=== PATIENT | female | born 1950 | race American Indian/Alaskan Native ===

== ENCOUNTER 2018-08-15 12:34 | Inpatient (IN) | payer MEDICARE ==
--- NOTE | 2018-08-15 13:01 | Cat Scan Report ---
HEAD CT WITHOUT CONTRAST INDICATION: Neurologic deficits <6 hours or symptoms present upon awakening. 98N. COMPARISON: None similar at this institution. FINDINGS: Noncontrast head CT demonstrates symmetric ventricles and sulci without acute or recent infarct, hemorrhage, mass effect or midline shift. No abnormal extra-axial fluid collections. Posterior fossa structures and basilar cisterns within normal limits. Slight left maxillary sinus mucosal thickening may be partially imaged. Aplastic/hypoplastic frontal sinuses bilaterally. Clear remainder imaged paranasal sinuses and mastoid air cells. Few radiopaque dental material. Symmetric eye globes. Intact calvarium. Normal scalp soft tissues. CONCLUSION: No acute intracranial CT abnormality with few other findings, as above. MRI is more sensitive for detection of acute infarct and may be useful for further evaluation in the setting of a focal neurologic deficit. I phoned the above results to Dr. Gonzalez in the ER, 12:50 PM, 08/15/2018. Thank you for the opportunity to participate in this patient's care.
[2018-08-15] MEDS ORDERED: NACL 0.9% 500 ML 500 ML IV ONE (13:05)
--- NOTE | 2018-08-15 13:06 | Emergency Department Report ---
ED Neuro Deficit HPI - General Chief Complaint: Weakness Stated Complaint: POSS CVA Time Seen by Provider: 08/15/18 12:54 Source: patient, family, EMS (verbal report received from EMS.ems notes not available at time of chart dictation), RN notes reviewed Mode of arrival: Stretcher Limitations: Physical Limitation - History of Present Illness Initial Comments: This is a 67-year-old female visiting from [facility]. She currently has a right-sided port, and is reportedly receiving chemotherapy for lymphoma. She recently traveled to [facility]. She is brought to the hospital by emergency medical services for reported code stroke. Patient's last known well time was last night. The patient reported that she woke up this morning, and felt dizzy, weak and lightheaded. She probably had an episode of syncope prior to arrival. At some point in time this morning, developed speech disturbance. Upon arrival to the emergency room, the patient is noted to have an intermittent speech disturbance, but no focal extremity weakness. Accu-Chek was within normal limits. Patient denied physical pain. Since patient reportedly woke up with lightheadedness, dizziness, possible unsteady gait, last known well time is last night, the patient is therefore not a TPA candidate. Noncontrast CT scan of the brain was negative for acute diseas e. During my initial evaluation the patient, she was noted to be articulating her words strangely, almost like in a childlike fashion. This resolves upon nursing evaluation. The patient was also evaluated by telephone neurology stroke specialist, Dr. Linda Robison, who agreed that patient did not meet criteria for qualify for TPA. We both agree to obtain emergent CT angiogram of the head and neck to exclude large vessel that require endovascular intervention. Tachycardia resolved, not hypoxic at this time. No lower extremity pain or swelling. -: unknown Location: speech, altered, other Presenting Symptoms: Present: Unable to Speak Clearly. Absent: Weak/Paralyzed One Side, Sudden, Severe Headache, Blurred/Loss of Vision, Facial Droop/Numbness, Altered Mental Status History of same: No Place: home Severity: moderate Improves With: other Worsens With: other On Anticoagulants: No - Related Data Home Medications: Home Medications Medication Instructions Recorded Confirmed Last Taken Fexofenadine HCl [Candida Allergy] 180 mg PO QAM PRN 08/15/18 08/15/18 Unknown Oxycodone HCl/Acetaminophen 1 each PO BID PRN 08/15/18 08/15/18 Unknown [Percocet 7.5/325 mg] Potassium Chloride [Klor-Con M20] 20 meq PO QDAY 08/15/18 08/15/18 Unknown Valsartan/Hydrochlorothiazide 1 each PO QDAY 08/15/18 08/15/18 Unknown [Valsartan-Hctz 320-25 mg Tab] hydrOXYzine HCl [Hydroxyzine HCl] 10 mg PO QHS PRN 08/15/18 08/15/18 Unknown Allergies/Adverse Reactions: Allergies Allergy/AdvReac Type Severity Reaction Status Date / Time Unable to Assess Allergy Unverified 08/15/18 12:36 ED Review of Systems ROS: Stated complaint: POSS CVA Other details as noted in HPI Constitutional: malaise Eyes: denies: vision change ENT: denies: epistaxis Respiratory: denies: cough Cardiovascular: syncope. denies: chest pain Gastrointestinal: denies: abdominal pain, hematemesis, melena, hematochezia Genitourinary: denies: dysuria Musculoskeletal: denies: arthralgia, myalgia Skin: denies: lesions Neurological: weakness Psychiatric: anxiety ED Past Medical Hx - Medications Home Medications: Home Medications Medication Instructions Recorded Confirmed Last Taken Type Fexofenadine HCl [Candida Allergy] 180 mg PO QAM PRN 08/15/18 08/15/18 Unknown History Oxycodone HCl/Acetaminophen 1 each PO BID PRN 08/15/18 08/15/18 Unknown History [Percocet 7.5/325 mg] Potassium Chloride [Klor-Con M20] 20 meq PO QDAY 08/15/18 08/15/18 Unknown History Valsartan/Hydrochlorothiazide 1 each PO QDAY 08/15/18 08/15/18 Unknown History [Valsartan-Hctz 320-25 mg Tab] hydrOXYzine HCl [Hydroxyzine HCl] 10 mg PO QHS PRN 08/15/18 08/15/18 Unknown History ED Neuro Physical Exam - General General appearance: alert, anxious, in distress, obese Suspected Stroke: No - Head Head exam: Present: atraumatic, normocephalic - Eye Eye exam: Present: normal appearance, EOMI. Absent: nystagmus - ENT ENT exam: Present: normal exam, normal orophraynx, mucous membranes moist, normal external ear exam - Neck Neck exam: Present: normal inspection, full ROM. Absent: tenderness, meningismus - Respiratory Respiratory exam: Present: normal lung sounds bilaterally. Absent: respiratory distress - Cardiovascular Cardiovascular Exam: Present: normal rhythm, tachycardia, normal heart sounds. Absent: systolic murmur, diastolic murmur, rubs, gallop - GI/Abdominal GI/Abdominal exam: Present: soft. Absent: distended, tenderness, guarding, rebound, rigid, pulsatile mass - Extremities Exam Extremities exam: Present: normal inspection, full ROM, other (2+ pulses noted in the bilateral upper, lower extremities. Compartments soft. No long bony tenderness. The pelvis is stable.). Absent: joint swelling, calf tenderness - Back Exam Back exam: Present: normal inspection, full ROM. Absent: tenderness, CVA tenderness (R), paraspinal tenderness, vertebral tenderness - Neurological Exam Neurological exam: Present: alert, other (Extraocular movements intact. Tongue midline. No facial droop. Facial sensation intact to light touch in the V1, V2, V3 distribution bilaterally. 5 and 5 strength in 4 extremities.. Sensation is intact to light touch in 4 extremities.). Absent: motor sensory deficit - NIHSS Assessment Interval: Baseline 1a. Level of Consciousness: alert/keenly responsive 1b. LOC Questions: answers both correctly 1c. LOC Commands: performs tasks correctly 2. Best Gaze: normal 3. Visual: no visual loss 4. Facial Palsy: normal symmetrical movement 5b. Motor Arm Right: no drift 5a. Motor Arm Left: no drift 6a. Motor Leg Left: no drift 6b. Motor Leg Right: no drift 7. Limb Ataxia: absent 8. Sensory: normal 9. Best Language: no aphasia 10. Dysarthria: mild/moderate dysarthria 11. Extinction/Inattention: no abnormality Total Score: 1 Stroke Severity: Minor Stroke - Psychiatric Psychiatric exam: Present: anxious - Skin Skin exam: Present: warm, dry, intact, normal color. Absent: rash ED Course Vital Signs 08/15/18 08/15/18 08/15/18 12:40 12:49 13:00 Temperature 98.5 F Pulse Rate 102 H 102 H 101 H Respiratory 18 13 14 Rate Blood Pressure 149/77 149/77 O2 Sat by Pulse 99 100 Oximetry 08/15/18 08/15/18 08/15/18 13:15 13:30 13:45 Temperature Pulse Rate 104 H 99 H 98 H Respiratory 13 17 13 Rate Blood Pressure 160/85 147/69 157/75 O2 Sat by Pulse 97 99 99 Oximetry 08/15/18 08/15/18 08/15/18 14:00 14:15 14:47 Temperature Pulse Rate 95 H 103 H 100 H Respiratory 11 L 16 17 Rate Blood Pressure 126/54 126/54 O2 Sat by Pulse 100 100 100 Oximetry 08/15/18 08/15/18 08/15/18 15:01 15:15 15:31 Temperature Pulse Rate 93 H 92 H 99 H Respiratory 10 L 14 13 Rate Blood Pressure 126/54 154/64 154/64 O2 Sat by Pulse 100 98 99 Oximetry 08/15/18 08/15/18 15:45 16:00 Temperature Pulse Rate 92 H 95 H Respiratory 11 L 18 Rate Blood Pressure 154/64 142/70 O2 Sat by Pulse 100 100 Oximetry - Reevaluation(s) Reevaluation #1: 08/15/18 18:27 Angiogram of the head and neck was negative for acute disease. Aspirin ordered. Hospital physician, Dr. De La Cruz has accepted the patient to the medical service. Please note that there was a significant delay in the patient's disposition secondary to prolonged time of interpretation for CT scan. - Lab Data Result diagrams: 08/15/18 12:55 08/15/18 12:55 Lab Results 08/15/18 08/15/18 08/15/18 Range/Units 12:55 12:55 12:59 WBC 3.9 L (4.5-11.0) K/mm3 RBC 4.47 (3.65-5.03) M/mm3 Hgb 12.7 (10.1-14.3) gm/dl Hct 37.9 (30.3-42.9) % MCV 85 (79-97) fl MCH 28 (28-32) pg MCHC 34 (30-34) % RDW 15.4 H (13.2-15.2) % Plt Count 103 L (140-440) K/mm3 [place] % (Auto) Supervisor Metalizing Add Manual Diff Complete Total Counted 100 Seg Neuts % (Manual) 58.0 (40.0-70.0) % Band Neutrophils % 0 % Lymphocytes % (Manual) 17.0 (13.4-35.0) % Reactive Lymphs % (Man) 0 % Monocytes % (Manual) 15.0 H (0.0-7.3) % Eosinophils % (Manual) 9.0 H (0.0-4.3) % Basophils % (Manual) 1.0 (0.0-1.8) % Metamyelocytes % 0 % Myelocytes % 0 % Promyelocytes % 0 % Blast Cells % 0 % Nucleated RBC % Not Reportable Seg Neutrophils # Man 2.3 (1.8-7.7) K/mm3 Band Neutrophils # 0.0 K/mm3 Lymphocytes # (Manual) 0.7 L (1.2-5.4) K/mm3 Abs React Lymphs (Man) 0.0 K/mm3 Monocytes # (Manual) 0.6 (0.0-0.8) K/mm3 Eosinophils # (Manual) 0.4 (0.0-0.4) K/mm3 Basophils # (Manual) 0.0 (0.0-0.1) K/mm3 Metamyelocytes # 0.0 K/mm3 Myelocytes # 0.0 K/mm3 Promyelocytes # 0.0 K/mm3 Blast Cells # 0.0 K/mm3 WBC Morphology Not Reportable Hypersegmented Neuts Not Reportable Hyposegmented Neuts Not Reportable Hypogranular Neuts Not Reportable Smudge Cells Not Reportable Toxic Granulation Not Reportable Toxic Vacuolation Not Reportable Dohle Bodies Not Reportable Pelger-Huet Anomaly Not Reportable Waldemar Rods Not Reportable Platelet Estimate Consistent w auto Clumped Platelets Not Reportable Plt Clumps, EDTA Not Reportable Large Platelets Not Reportable Giant Platelets Not Reportable Platelet Satelliting Not Reportable Plt Morphology Comment Not Reportable RBC Morphology Not Reportable Dimorphic RBCs Not Reportable Polychromasia Not Reportable Hypochromasia Not Reportable Poikilocytosis Not Reportable Anisocytosis Few Microcytosis Not Reportable Macrocytosis Not Reportable Spherocytes Not Reportable Pappenheimer Bodies Not Reportable Sickle Cells Not Reportable Target Cells Not Reportable Tear Drop Cells Not Reportable Ovalocytes Not Reportable Helmet Cells Not Reportable Abdi-[place] Bodies Not Reportable [place] Rings Not Reportable [place] Cells Not Reportable Bite Cells Not Reportable Crenated Cell Not Reportable Elliptocytes Not Reportable Acanthocytes (Spur) Not Reportable Rouleaux Not Reportable Hemoglobin C Crystals Not Reportable Schistocytes Not Reportable Malaria parasites Not Reportable Miguel Ángel Bodies Not Reportable Hem Pathologist Commnt No PT 14.5 (12.2-14.9) Sec. INR 1.06 (0.87-1.13) APTT 28.0 (24.2-36.6) Sec. Thrombin Time 16.9 (15.1-19.6) Sec. Sodium 142 (137-145) mmol/L Potassium 4.1 (3.6-5.0) mmol/L Chloride 103.3 (98-107) mmol/L Carbon Dioxide 26 (22-30) mmol/L Anion Gap 17 mmol/L BUN 14 (7-17) mg/dL Creatinine 0.8 (0.7-1.2) mg/dL Estimated GFR > 60 ml/min BUN/Creatinine Ratio 18 % Glucose 109 H (65-100) mg/dL Calcium 10.3 H (8.4-10.2) mg/dL Magnesium (1.7-2.3) mg/dL Total Creatine Kinase (30-135) units/L Troponin T 0.049 H (0.00-0.029) ng/mL Triglycerides 140 (2-149) mg/dL Cholesterol 189 (50-199) mg/dL LDL Cholesterol Direct 115 (50-130) mg/dL HDL Cholesterol 45 (40-59) mg/dL Cholesterol/HDL Ratio 4.20 % TSH (0.270-4.200) mlU/mL Urine Color (Yellow) Urine Turbidity (Clear) Urine pH (5.0-7.0) Ur Specific Farrell (1.003-1.030) Urine Protein (Negative) mg/dL Urine Glucose (UA) (Negative) mg/dL Urine Ketones (Negative) mg/dL Urine Blood (Negative) Urine Nitrite (Negative) Urine Bilirubin (Negative) Urine Urobilinogen (<2.0) mg/dL Ur Leukocyte Esterase (Negative) Urine WBC (Auto) (0.0-6.0) /HPF Urine RBC (Auto) (0.0-6.0) /HPF U Epithel Cells (Auto) (0-13.0) /HPF Urine Bacteria (Auto) (Negative) /HPF 08/15/18 08/15/1808/15/19 Range/Units 13:10 13:10 14:05 WBC (4.5-11.0) K/mm3 RBC (3.65-5.03) M/mm3 Hgb (10.1-14.3) gm/dl Hct (30.3-42.9) % MCV (79-97) fl MCH (28-32) pg MCHC (30-34) % RDW (13.2-15.2) % Plt Count (140-440) K/mm3 [place] % (Auto) Add Manual Diff Total Counted Seg Neuts % (Manual) (40.0-70.0) % Band Neutrophils % % Lymphocytes % (Manual) (13.4-35.0) % Reactive Lymphs % (Man) % Monocytes % (Manual) (0.0-7.3) % Eosinophils % (Manual) (0.0-4.3) % Basophils % (Manual) (0.0-1.8) % Metamyelocytes % % Myelocytes % % Promyelocytes % % Blast Cells % % Nucleated RBC % Seg Neutrophils # Man (1.8-7.7) K/mm3 Band Neutrophils # K/mm3 Lymphocytes # (Manual) (1.2-5.4) K/mm3 Abs React Lymphs (Man) K/mm3 Monocytes # (Manual) (0.0-0.8) K/mm3 Eosinophils # (Manual) (0.0-0.4) K/mm3 Basophils # (Manual) (0.0-0.1) K/mm3 Metamyelocytes # K/mm3 Myelocytes # K/mm3 Promyelocytes # K/mm3 Blast Cells # K/mm3 WBC Morphology Hypersegmented Neuts Hyposegmented Neuts Hypogranular Neuts Smudge Cells Toxic Granulation Toxic Vacuolation Dohle Bodies Pelger-Huet Anomaly Waldemar Rods Platelet Estimate Clumped Platelets Plt Clumps, EDTA Large Platelets Giant Platelets Platelet Satelliting Plt Morphology Comment RBC Morphology Dimorphic RBCs Polychromasia Hypochromasia Poikilocytosis Anisocytosis Microcytosis Macrocytosis Spherocytes Pappenheimer Bodies Sickle Cells Target Cells Tear Drop Cells Ovalocytes Helmet Cells Abdi-[place] Bodies [place] Rings [place] Cells Bite Cells Crenated Cell Elliptocytes Acanthocytes (Spur) Rouleaux Hemoglobin C Crystals Schistocytes Malaria parasites Miguel Ángel Bodies Hem Pathologist Commnt PT (12.2-14.9) Sec. INR (0.87-1.13) APTT (24.2-36.6) Sec. Thrombin Time (15.1-19.6) Sec. Sodium (137-145) mmol/L Potassium (3.6-5.0) mmol/L Chloride (98-107) mmol/L Carbon Dioxide (22-30) mmol/L Anion Gap mmol/L BUN (7-17) mg/dL Creatinine (0.7-1.2) mg/dL Estimated GFR ml/min BUN/Creatinine Ratio % Glucose (65-100) mg/dL Calcium (8.4-10.2) mg/dL Magnesium 1.70 (1.7-2.3) mg/dL Total Creatine Kinase 109 (30-135) units/L Troponin T (0.00-0.029) ng/mL Triglycerides (2-149) mg/dL Cholesterol (50-199) mg/dL LDL Cholesterol Direct (50-130) mg/dL HDL Cholesterol (40-59) mg/dL Cholesterol/HDL Ratio % TSH 1.230 (0.270-4.200) mlU/mL Urine Color Straw (Yellow) Urine Turbidity Clear (Clear) Urine pH 8.0 H (5.0-7.0) Ur Specific Farrell 1.005 (1.003-1.030) Urine Protein <15 mg/dl (Negative) mg/dL Urine Glucose (UA) Neg (Negative) mg/dL Urine Ketones Neg (Negative) mg/dL Urine Blood Neg (Negative) Urine Nitrite Neg (Negative) Urine Bilirubin Neg (Negative) Urine Urobilinogen < 2.0 (<2.0) mg/dL Ur Leukocyte Esterase Mod (Negative) Urine WBC (Auto) 9.0 H (0.0-6.0) /HPF Urine RBC (Auto) 1.0 (0.0-6.0) /HPF U Epithel Cells (Auto) 3.0 (0-13.0) /HPF Urine Bacteria (Auto) 1+ (Negative) /HPF - EKG Data -: EKG Interpreted by Oh EKG shows normal: sinus rhythm Rate: tachycardia When compared to previous EKG there are: previous EKG unavailable 08/15/18 14:25 Sinus tachycardia, 101 bpm, normal axis, QTC within normal limits, motion artif act, poor R-wave progression, abnormal EKG, not consistent with ST elevation myocardial infarction. - Radiology Data Radiology results: report reviewed, image reviewed X-ray the chest is negative for acute disease. Noncontrast CT scan of the brain is negative for acute disease. Angiogram of the head and neck: - Core Measures Measure Exclusions: not indicated - Thrombolytic Inclusion/Exclusion Thrombolytic Exclusion Criteria: Onset of Symptoms Unknown Thrombolytic Contraindications: Rapidily Improving s/s Critical care attestation.: If time is entered above; I have spent that time in minutes in the direct care of this critically ill patient, excluding procedure time. ED Disposition Clinical Impression: TIA (transient ischemic attack), Syncope Disposition: 09 OP ADMIT IP TO THIS HOSP Is pt being admited?: Yes Does the pt Need Aspirin: Yes Condition: Good Instructions: Syncope (ED) Referrals: CAIT WILLIS MD [Primary Care Provider] - 3-5 Days
[2018-08-15 13:08] LABS: Hematocrit 37.9 % (30.3-42.9); Hemoglobin 12.7 gm/dl (10.1-14.3); Mean Corpuscular HGB Conc 34 % (30-34); Mean Corpuscular Volume 85 fl (79-97); Platelet Count 103 K/mm3 (140-440); Red Blood Count 4.47 M/mm3 (3.65-5.03); Red Cell Distribution Width 15.4 % (13.2-15.2)
[2018-08-15 13:19] LABS: INR 1.06 (0.87-1.13)
[2018-08-15 13:20] LABS: Thrombin Time 16.9 Sec. (15.1-19.6)
[2018-08-15 13:29] LABS: BUN/Creatinine Ratio 18; Blood Urea Nitrogen 14 mg/dL (7-17); Calcium 10.3 mg/dL (8.4-10.2); Hemolysis Index 15
--- NOTE | 2018-08-15 13:29 | XRay Report ---
PORTABLE CHEST INDICATION: Syncope. COMPARISON: None similar. FINDINGS: Portable, frontal chest radiograph demonstrates normal cardiomediastinal silhouette. Clear lungs. Right chest port tip along the distal SVC. EKG leads. Intact bones. CONCLUSION: No acute chest process, as described. Thank you for the opportunity to participate in this patient's care. Syncope.
[2018-08-15 13:42] LABS: Total Cells Counted 100
[2018-08-15 13:48] LABS: Anisocytosis Few; Platelet Estimate Consistent w Auto
[2018-08-15 14:06] LABS: HDL Cholesterol 45 mg/dL (40-59); LDL Cholesterol,Direct 115 mg/dL (50-130)
[2018-08-15 14:43] LABS: Bacteria,Urine 1+ /HPF (Negative); Bilirubin,Urine NEG (Negative); Blood,Urine NEG (Negative); Color,Urine Straw (Yellow); Protein,Urine <15 mg/dL mg/dL (Negative); Urobilinogen,Urine < 2.0 mg/dL (<2.0)
[2018-08-15] MEDS ORDERED: BABY ASPIRIN PO ONE (18:28)
--- NOTE | 2018-08-15 19:01 | Cat Scan Report ---
PROCEDURE: CTA neck, CTA head TECHNIQUE: Computerized tomographic angiography of the head and neck was performed after the IV inje ction of iodinated nonionic contrast including image processing. The image data was postprocessed usi 2-dimensional multiplanar reformatted (MPR) and 3-dimensional (MIP and/or volume rendered) [employer] ues. CT DOSE LENGTH PRODUCT: 2020.47 mGycm HISTORY: cva FINDINGS: Contrast-enhanced CT angiography of the neck and head was performed following the intraveno us administration of iodinated contrast. Sagittal and coronal three-dimensional reformatted images we re generated. Comparison is made to the unenhanced CT examination performed earlier in the day. CTA NECK: The pulmonary apices appear clear. There is a right-sided infusion port. The right common carotid artery is widely patent. There is a short segment estimated 15% stenosis of the origin of the internal carotid artery, sagittal image 132. The external carotid is widely patent. The right vertebral artery is patent throughout its course. On the left, the common carotid artery is widely patent. There is a minimal less than 10% stenosis of the origin of the left internal carotid artery. The external carotid artery is widely patent. The ve rtebral artery is patent throughout its course. The thyroid gland is unremarkable. There is a normal epiglottis. The larynx is within normal limits. CTA HEAD: Both vertebral arteries are patent. The basilar artery is patent. Both posterior cerebral arteries ap pear widely patent. In the anterior circulation, the internal carotid, middle cerebral and anterior cerebral arteries lily ear patent. Both anterior cerebral arteries are primarily perfused from the right side as the left A1 segment is very small, likely on a developmental basis. No acute infarct is seen. Diffusion weighted MRI may be considered if patient has persistent altered mental status. There are bilateral maxillary polyps versus mucus retention cysts. IMPRESSION: CTA neck: No stenosis of greater than 50% is seen in the cervical arterial vasculature CTA HEAD: The intracranial arterial vasculature appears widely patent This document is electronically signed by Aly Pastrana MD., August 15 2018 06:43:02 PM ET
--- NOTE | 2018-08-15 23:49 | Event Note ---
Date: 08/15/18 See dictated H/p inreports TIA versus CVA L sided weakness Poor Historian
[2018-08-15] MEDS ORDERED: TYLENOL PO PRN (23:50)
[2018-08-15] MEDS ORDERED: PERCOCET 5/325 PO PRN (23:50)
[2018-08-15] MEDS ORDERED: SODIUM CHLORIDE FLUSH SYRINGE 10 ML IV PRN (23:50)
[2018-08-15] MEDS ORDERED: ZOFRAN IV PRN (23:50)
[2018-08-15] MEDS ORDERED: DILAUDID IV PRN (23:50)
[2018-08-15] MEDS ORDERED: NON-FORMULARY (Fexofenadine Hcl [Allegra Allergy] 180 MG) PO PRN (23:54)
[2018-08-15] MEDS ORDERED: SODIUM CHLORIDE FLUSH SYRINGE 10 ML INJ PRN (23:55)
[2018-08-16] MEDS: ATARAX PO PRN ×2 (00:45→21:58)
[2018-08-16] MEDS: MACROBID PO SCH ×3 (00:45→21:57)
[2018-08-16] MEDS: NACL 0.9% 1000 ML 1,000 ML IV SCH ×2 (00:45→16:38)
[2018-08-16] MEDS: SODIUM CHLORIDE FLUSH SYRINGE 10 ML IV SCH ×3 (00:45→21:57)
[2018-08-16 05:52] LABS: Hematocrit 33.8 % (30.3-42.9); Hemoglobin 11.4 gm/dl (10.1-14.3); Mean Corpuscular HGB Conc 34 % (30-34); Mean Corpuscular Volume 84 fl (79-97); Red Blood Count 4.04 M/mm3 (3.65-5.03); Red Cell Distribution Width 15.4 % (13.2-15.2)
[2018-08-16 05:54] LABS: Platelet Count 98 K/mm3 (140-440)
[2018-08-16 06:35] LABS: Band Neutrophils # (Manual) 0.1 K/mm3; Total Cells Counted 100
[2018-08-16 06:36] LABS: Large Platelets Few; Platelet Estimate Appears Decreased; RBC Morphology Normal
[2018-08-16 06:45] LABS: Alanine Aminotransferase 16 units/L (7-56); Albumin 3.3 g/dL (3.9-5); BUN/Creatinine Ratio 20; Blood Urea Nitrogen 14 mg/dL (7-17); Calcium 9.7 mg/dL (8.4-10.2); Hemolysis Index 6
--- NOTE | 2018-08-16 07:54 | History and Physical Report ---
CHIEF COMPLAINT: Left-sided weakness. HISTORY OF PRESENT ILLNESS: A 67-year-old -Martiniquais female with history of lymphoma, supposedly in remission, was traveling to [place], [place] over 10 days ago and developed dizziness and some weakness on the left side. The patient was evaluated and sent home. The patient came back from [place] yesterday and has been having similar symptoms. The patient was feeling dizzy and weak and lightheaded. Also, some slight weakness on the left upper and left lower extremity. The patient is a very poor historian and unable to emphasize her symptoms. The patient was evaluated for TPA in the Emergency Room and supposedly did not meet the criteria for TPA. PAST MEDICAL HISTORY: Significant for hypertension, chronic pain, and allergic rhinitis. PAST SURGICAL HISTORY: None. FAMILY HISTORY: Hypertension. SOCIAL HISTORY: Does not smoke. No alcohol. REVIEW OF SYSTEMS: Significant for left-sided weakness, but the patient is not sure whether is near normal or there is slight to moderate weakness. The patient able to lift her left upper extremity and left lower extremity, but unable to lift to the full extent. Otherwise, review of systems is negative. PHYSICAL EXAMINATION: GENERAL: Elderly female, cooperative during examination, obese. VITAL SIGNS: Blood pressure 125/53, temperature 98.7, pulse 92, respirations 18. HEENT: Unremarkable. Pupils equal and reactive. NECK: Supple, no lymphadenopathy, no thyromegaly. LUNGS: Clear to auscultation and percussion. Good air entry. CARDIOVASCULAR: S1, S2 heard. No gallop, no murmur, no rub. Apical impulse in left fifth intercostal space and midclavicular line. ABDOMEN: Soft and benign. No hepatosplenomegaly. No guarding, no rigidity. Hernial orifices are normal. EXTREMITIES: Good pedal pulses. No pedal edema. CENTRAL NERVOUS SYSTEM: Left upper extremity and left lower extremity about 3+ to 4/5 power. Reflexes are brisk. No dysarthria. No sensory loss. No cranial nerve dysfunction. IMAGING STUDIES: The patient had a neck CT angiogram, which showed normal CTA neck. Right-sided infusion port for the lymphoma. CT head was also normal. No occlusions. Chest x-ray, no acute process. LABORATORY DATA: Significant for normal hemoglobin and hematocrit. Electrolytes are normal. Troponin is 0.049. Total CK is 109, BUN and creatinine is 14 and 0.8. Urine shows wbc's of 9.0. ASSESSMENT AND PLAN: 1. Transient ischemic attack versus cerebrovascular accident. Cerebrovascular accident protocol initiated. The patient already had CT angiogram of the neck and the head. The patient did get MRI, carotid duplex scan and echocardiogram. The patient may have transient ischemic attack and may have recovered completely. We will get Neurology consult. 2. Hypertension. Continue valsartan. 3. Chronic pain. Continue Percocet. 4. Morbid obesity. The patient counseled. The patient to follow up with bariatric surgery as outpatient. 5. Deep venous thrombosis prophylaxis, Lovenox 40 mg subcutaneous daily and gastrointestinal prophylaxis. JOB# [id number] FATUMA/BRITTANY WALL
[2018-08-16] MEDS ORDERED: HYDROCHLOROTHIAZIDE PO SCH (10:00)
[2018-08-16] MEDS ORDERED: VALSARTAN PO SCH (10:00)
--- NOTE | 2018-08-16 10:47 | Progress Note ---
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 She recently traveled to [facility]. At some point in time this morning, developed speech disturbance. Upon arrival to the emergency room, the patient is noted to have an intermittent speech disturbance, but no focal extremity weakness. Accu-Chek was within normal limits. Patient denied physical pain. per chart, Since patient reportedly woke up with lightheadedness, dizziness, possible unsteady gait, last known well time is last night, the patient is therefore not a TPA candidate. Noncontrast CT scan of the brain was negative for acute disease. -Dizziness and Ataxia gait suspect Acute CVA vs TIA: mri pending, consulted Neurology, Dr. Barone, treat with asa and statin -History of NHL; continue to monitor -UTI; ordered urine culture, start iv rocephin History Interval history: Patient was seen and examined. Follow-up on current diagnosis of dizziness. Overnight uneventful. Patient denies any chest pain, shortness breath, nausea/vomiting or severe headaches. Imaging, nursing note, chart, labs and old chart reviewed. Discussed with patient. Hospitalist Physical - Physical exam Narrative exam: Gen: WDWN, NAD, Awake, Alert, Orientated HEENT: NCAT, EOMI, PERRL, OP Clear Neck: supple, no adenopathy, no thyromegaly, no JVD CVS/Heart: RRR, normal S1S2, pulses present bilaterally Chest/Lungs: CTA B, Symmetrical chest expansion, good air entry bilaterally GI/Abdomen: soft, NTND, good bowel sounds, no guarding or rebound /Bladder: no suprapubic tenderness, no CVA or paraspinal tenderness Extermity/Skin: no c/c/e, no obvious rash MSK: FROM x 4 Neuro: CN 2-12 grossly intact, no new focal deficits Psych: calm - Constitutional Vitals: Temp Pulse Resp BP Pulse Ox 98.9 F 82 18 124/44 99 08/16/18 04:23 08/16/18 04:23 08/16/18 04:23 08/16/18 04:23 08/16/18 04:23 Results - Labs CBC & Chem 7: 08/16/18 05:21 08/16/18 05:21 Labs: Laboratory Last Values WBC 3.6 K/mm3 (4.5-11.0) L 08/16/18 05:21 RBC 4.04 M/mm3 (3.65-5.03) 08/16/18 05:21 Hgb 11.4 gm/dl (10.1-14.3) 08/16/18 05:21 Hct 33.8 % (30.3-42.9) 08/16/18 05:21 MCV 84 fl (79-97) 08/16/18 05:21 MCH 28 pg (28-32) 08/16/18 05:21 MCHC 34 % (30-34) 08/16/18 05:21 RDW 15.4 % (13.2-15.2) H 08/16/18 05:21 Plt Count 98 K/mm3 (140-440) L 08/16/18 05:21 [place] % (Auto) Concert Singer 08/16/18 05:21 Add Manual Diff Complete 08/16/18 05:21 Total Counted 100 08/16/18 05:21 Seg Neuts % (Manual) 60.0 % (40.0-70.0) 08/16/18 05:21 Band Neutrophils % 3.0 % 08/16/18 05:21 Lymphocytes % (Manual) 19.0 % (13.4-35.0) 08/16/18 05:21 Reactive Lymphs % (Man) 0 % 08/16/18 05:21 Monocytes % (Manual) 4.0 % (0.0-7.3) 08/16/18 05:21 Eosinophils % (Manual) 11.0 % (0.0-4.3) H 08/16/18 05:21 Basophils % (Manual) 1.0 % (0.0-1.8) 08/16/18 05:21 Metamyelocytes % 1.0 % 08/16/18 05:21 Myelocytes % 1.0 % 08/16/18 05:21 Promyelocytes % 0 % 08/16/18 05:21 Blast Cells % 0 % 08/16/18 05:21 Nucleated RBC % Not Reportable 08/16/18 05:21 Seg Neutrophils # Man 2.2 K/mm3 (1.8-7.7) 08/16/18 05:21 Band Neutrophils # 0.1 K/mm3 08/16/18 05:21 Lymphocytes # (Manual) 0.7 K/mm3 (1.2-5.4) L 08/16/18 05:21 Abs React Lymphs (Man) 0.0 K/mm3 08/16/18 05:21 Monocytes # (Manual) 0.1 K/mm3 (0.0-0.8) 08/16/18 05:21 Eosinophils # (Manual) 0.4 K/mm3 (0.0-0.4) 08/16/18 05:21 Basophils # (Manual) 0.0 K/mm3 (0.0-0.1) 08/16/18 05:21 Metamyelocytes # 0.0 K/mm3 08/16/18 05:21 Myelocytes # 0.0 K/mm3 08/16/18 05:21 Promyelocytes # 0.0 K/mm3 08/16/18 05:21 Blast Cells # 0.0 K/mm3 08/16/18 05:21 WBC Morphology Not Reportable 08/16/18 05:21 Hypersegmented Neuts Not Reportable 08/16/18 05:21 Hyposegmented Neuts Not Reportable 08/16/18 05:21 Hypogranular Neuts Not Reportable 08/16/18 05:21 Smudge Cells Not Reportable 08/16/18 05:21 Toxic Granulation Not Reportable 08/16/18 05:21 Toxic Vacuolation Not Reportable 08/16/18 05:21 Dohle Bodies Not Reportable 08/16/18 05:21 Pelger-Huet Anomaly Not Reportable 08/16/18 05:21 Waldemar Rods Not Reportable 08/16/18 05:21 Platelet Estimate Appears decreased 08/16/18 05:21 Clumped Platelets Not Reportable 08/16/18 05:21 Plt Clumps, EDTA Not Reportable 08/16/18 05:21 Large Platelets Few 08/16/18 05:21 Giant Platelets Not Reportable 08/16/18 05:21 Platelet Satelliting Not Reportable 08/16/18 05:21 Plt Morphology Comment Not Reportable 08/16/18 05:21 RBC Morphology Normal 08/16/18 05:21 Dimorphic RBCs Not Reportable 08/16/18 05:21 Polychromasia Not Reportable 08/16/18 05:21 Hypochromasia Not Reportable 08/16/18 05:21 Poikilocytosis Not Reportable 08/16/18 05:21 Anisocytosis Not Reportable 08/16/18 05:21 Microcytosis Not Reportable 08/16/18 05:21 Macrocytosis Not Reportable 08/16/18 05:21 Spherocytes Not Reportable 08/16/18 05:21 Pappenheimer Bodies Not Reportable 08/16/18 05:21 Sickle Cells Not Reportable 08/16/18 05:21 Target Cells Not Reportable 08/16/18 05:21 Tear Drop Cells Not Reportable 08/16/18 05:21 Ovalocytes Not Reportable 08/16/18 05:21 Helmet Cells Not Reportable 08/16/18 05:21 Abdi-[place] Bodies Not Reportable 08/16/18 05:21 [place] Rings Not Reportable 08/16/18 05:21 [place] Cells Not Reportable 08/16/18 05:21 Bite Cells Not Reportable 08/16/18 05:21 Crenated Cell Not Reportable 08/16/18 05:21 Elliptocytes Not Reportable 08/16/18 05:21 Acanthocytes (Spur) Not Reportable 08/16/18 05:21 Rouleaux Not Reportable 08/16/18 05:21 Hemoglobin C Crystals Not Reportable 08/16/18 05:21 Schistocytes Not Reportable 08/16/18 05:21 Malaria parasites Not Reportable 08/16/18 05:21 Miguel Ángel Bodies Not Reportable 08/16/18 05:21 Hem Pathologist Commnt No 08/16/18 05:21 PT 14.5 Sec. (12.2-14.9) 08/15/18 12:59 INR 1.06 (0.87-1.13) 08/15/18 12:59 APTT 28.0 Sec. (24.2-36.6) 08/15/18 12:59 Thrombin Time 16.9 Sec. (15.1-19.6) 08/15/18 12:59 Sodium 141 mmol/L (137-145) 08/16/18 05:21 Potassium 4.2 mmol/L (3.6-5.0) 08/16/18 05:21 Chloride 103.9 mmol/L (98-107) 08/16/18 05:21 Carbon Dioxide 26 mmol/L (22-30) 08/16/18 05:21 Anion Gap 15 mmol/L 08/16/18 05:21 BUN 14 mg/dL (7-17) 08/16/18 05:21 Creatinine 0.7 mg/dL (0.7-1.2) 08/16/18 05:21 Estimated GFR > 60 ml/min 08/16/18 05:21 BUN/Creatinine Ratio 20 % 08/16/18 05:21 Glucose 105 mg/dL (65-100) H 08/16/18 05:21 Hemoglobin A1c 5.6 % (4-6) 08/15/18 00:10 Calcium 9.7 mg/dL (8.4-10.2) 08/16/18 05:21 Magnesium 1.70 mg/dL (1.7-2.3) 08/15/18 13:10 Total Bilirubin 0.30 mg/dL (0.1-1.2) 08/16/18 05:21 AST 24 units/L (5-40) 08/16/18 05:21 ALT 16 units/L (7-56) 08/16/18 05:21 Alkaline Phosphatase 44 units/L (35-129) 08/16/18 05:21 Total Creatine Kinase 109 units/L (30-135) 08/15/18 13:10 Troponin T 0.049 ng/mL (0.00-0.029) H 08/15/18 12:55 Total Protein 6.4 g/dL (6.3-8.2) 08/16/18 05:21 Albumin 3.3 g/dL (3.9-5) L 08/16/18 05:21 Albumin/Globulin Ratio 1.1 % 08/16/18 05:21 Triglycerides 140 mg/dL (2-149) 08/15/18 12:55 Cholesterol 189 mg/dL (50-199) 08/15/18 12:55 LDL Cholesterol Direct 115 mg/dL (50-130) 08/15/18 12:55 HDL Cholesterol 45 mg/dL (40-59) 08/15/18 12:55 Cholesterol/HDL Ratio 4.20 % 08/15/18 12:55 TSH 1.230 mlU/mL (0.270-4.200) 08/15/18 13:10 Urine Color Straw (Yellow) 08/15/18 14:05 Urine Turbidity Clear (Clear) 08/15/18 14:05 Urine pH 8.0 (5.0-7.0) H 08/15/18 14:05 Ur Specific [place] 1.005 (1.003-1.030) 08/15/18 14:05 Urine Protein <15 mg/dl mg/dL (Negative) 08/15/18 14:05 Urine Glucose (UA) Neg mg/dL (Negative) 08/15/18 14:05 Urine Ketones Neg mg/dL (Negative) 08/15/18 14:05 Urine Blood Neg (Negative) 08/15/18 14:05 Urine Nitrite Neg (Negative) 08/15/18 14:05 Urine Bilirubin Neg (Negative) 08/15/18 14:05 Urine Urobilinogen < 2.0 mg/dL (<2.0) 08/15/18 14:05 Ur Leukocyte Esterase Mod (Negative) 08/15/18 14:05 Urine WBC (Auto) 9.0 /HPF (0.0-6.0) H 08/15/18 14:05 Urine RBC (Auto) 1.0 /HPF (0.0-6.0) 08/15/18 14:05 U Epithel Cells (Auto) 3.0 /HPF (0-13.0) 08/15/18 14:05 Urine Bacteria (Auto) 1+ /HPF (Negative) 08/15/18 14:05
[2018-08-16] MEDS: DIOVAN PO SCH (10:53)
[2018-08-16] MEDS: PEPCID PO SCH ×2 (10:53→21:57)
[2018-08-16] MEDS: K-DUR PO SCH (10:53)
[2018-08-16] MEDS: HCTZ PO SCH (10:53)
[2018-08-16] MEDS: CLARITIN PO PRN (10:56)
--- NOTE | 2018-08-16 12:15 | Vascular Lab Report ---
PROCEDURE: VL CAROTID DUPLEX BILAT TECHNIQUE: Carotid Doppler ultrasound performed. HISTORY: stroke COMPARISON: None FINDINGS: Is a mild amount of atherosclerotic plaque. There is no abnormal elevation carotid artery flow veloci ty seen. ICA/CCA ratios are normal bilaterally, 0.74 on the right and 0.6 on the left. Findings corre spond to less than 50% stenosis. Vertebral artery flow is antegrade bilaterally. IMPRESSION: No evidence of any hemodynamically significant carotid artery stenosis. This document is electronically signed by Angelica Tapia MD., August 16 2018 10:06:44 AM ET
--- NOTE | 2018-08-16 14:04 | Progress Note ---
Subjective Date of service: 08/16/18 Interval history: hx of recent acute stroke while on plane trip plan MRI MRA to complete w/u interersting hx of psoriasis and lymphoma- stage 4 plan labs Objective - Vital Sign Vital Signs - 12hr 08/16/18 08/16/18 04:23 12:02 Temperature 98.9 F Pulse Rate 82 86 Respiratory 18 Rate Blood Pressure 124/44 124/56 O2 Sat by Pulse 99 99 Oximetry - Laboratory Findings CBC and BMP: 08/16/18 05:21 08/16/18 05:21 Abnormal Lab Findings: Abnormal Labs 08/15/18 08/15/18 08/15/18 12:55 12:55 14:05 WBC 3.9 L RDW 15.4 H Plt Count 103 L Monocytes % (Manual) 15.0 H Eosinophils % (Manual) 9.0 H Lymphocytes # (Manual) 0.7 L Glucose 109 H POC Glucose Calcium 10.3 H Troponin T 0.049 H Albumin Urine pH 8.0 H Urine WBC (Auto) 9.0 H 08/16/18 08/16/18 08/16/18 05:21 05:21 12:06 WBC 3.6 L RDW 15.4 H Plt Count 98 L Monocytes % (Manual) Eosinophils % (Manual) 11.0 H Lymphocytes # (Manual) 0.7 L Glucose 105 H POC Glucose 140 H Calcium Troponin T Albumin 3.3 L Urine pH Urine WBC (Auto)
[2018-08-16] MEDS: BABY ASPIRIN PO SCH (14:09)
[2018-08-16] MEDS: ROCEPHIN/NS 1 GM/50 ML 1 GM/50 ML BAG IV SCH (14:09)
[2018-08-17] MEDS: NACL 0.9% 1000 ML 1,000 ML IV SCH ×2 (05:26→21:55)
--- NOTE | 2018-08-17 09:36 | Cat Scan Report ---
PROCEDURE: CT HEAD/BRAIN WO CON TECHNIQUE: Computerized tomography of the head was performed without contrast material. HISTORY: possible cva COMPARISONS: Head CT performed on 08/15/2018 . FINDINGS: There is no parenchymal hemorrhage or extra-axial fluid collection. There is no mass or mass effect. There is no acute territorial infarct. There are scattered areas of decreased attenuation in the subc ortical and periventricular white matter, likely due to chronic microvascular ischemic disease. The v entricles are midline. The subarachnoid spaces and basilar cisterns are clear. There is no skull frac ture. The paranasal sinuses and mastoid air cells are clear. IMPRESSION: No acute intracranial abnormality . Chronic microvascular ischemic changes in the subcortical and periventricular white matter. Negative acute findings were discussed with MAGALIS Hunter by [facility] operation technical sales support manager at 9:32 AM, Eastern standard time on 08/17/2018. This document is electronically signed by Emma Hargrove MD., August 17 2018 09:33:22 AM ET
--- NOTE | 2018-08-17 09:47 | Progress Note ---
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 She recently traveled to [facility]. At some point in time this morning, developed speech disturbance. Upon arrival to the emergency room, the patient is noted to have an intermittent speech disturbance, but no focal extremity weakness. Accu-Chek was within normal limits. Patient denied physical pain. per chart, Since patient reportedly woke up with lightheadedness, dizziness, possible unsteady gait, last known well time is last night, the patient is therefore not a TPA candidate. Noncontrast CT scan of the brain was negative for acute disease. -Dizziness and Ataxia gait suspect Acute CVA vs TIA: mri pending, consulted Neurology, Dr. Barone, treat with asa and statin -Acute encephalopathy, poa,?seizure; start keppra, order EEG -History of NHL; continue to monitor -UTI; follow up urine culture, started iv rocephin Patient was doing well this morning until she went to the restroom and she had an episode of dizziness, ataxia, alteration in consciousness like a post-ictal state. CODE Stroke called, and repeat CT head unremarkable for acute stroke. Will order EEG and start on Keppra, still waiting on MRI brain because it is not done during the Weekend. History Interval history: Patient was seen and examined. Follow-up on current diagnosis of dizziness. Overnight uneventful. Patient denies any chest pain, shortness breath, nausea/vomiting or severe headaches. Imaging, nursing note, chart, labs and old chart reviewed. Discussed with patient. Hospitalist Physical - Physical exam Narrative exam: Gen: WDWN, NAD, Awake, Alert, Orientated HEENT: NCAT, EOMI, PERRL, OP Clear Neck: supple, no adenopathy, no thyromegaly, no JVD CVS/Heart: RRR, normal S1S2, pulses present bilaterally Chest/Lungs: CTA B, Symmetrical chest expansion, good air entry bilaterally GI/Abdomen: soft, NTND, good bowel sounds, no guarding or rebound /Bladder: no suprapubic tenderness, no CVA or paraspinal tenderness Extermity/Skin: no c/c/e, no obvious rash MSK: FROM x 4 Neuro: CN 2-12 grossly intact, no new focal deficits Psych: calm - Constitutional Vitals: Temp Pulse Resp BP Pulse Ox 98.7 F 87 18 133/60 98 08/17/18 08:22 08/17/18 08:22 08/17/18 08:22 08/17/18 08:22 08/17/18 08:22 Results - Labs CBC & Chem 7: 08/16/18 05:21 08/16/18 05:21 Labs: Laboratory Last Values WBC 3.6 K/mm3 (4.5-11.0) L 08/16/18 05:21 RBC 4.04 M/mm3 (3.65-5.03) 08/16/18 05:21 Hgb 11.4 gm/dl (10.1-14.3) 08/16/18 05:21 Hct 33.8 % (30.3-42.9) 08/16/18 05:21 MCV 84 fl (79-97) 08/16/18 05:21 MCH 28 pg (28-32) 08/16/18 05:21 MCHC 34 % (30-34) 08/16/18 05:21 RDW 15.4 % (13.2-15.2) H 08/16/18 05:21 Plt Count 98 K/mm3 (140-440) L 08/16/18 05:21 [place] % (Auto) Water Resources Engineer 08/16/18 05:21 Add Manual Diff Complete 08/16/18 05:21 Total Counted 100 08/16/18 05:21 Seg Neuts % (Manual) 60.0 % (40.0-70.0) 08/16/18 05:21 Band Neutrophils % 3.0 % 08/16/18 05:21 Lymphocytes % (Manual) 19.0 % (13.4-35.0) 08/16/18 05:21 Reactive Lymphs % (Man) 0 % 08/16/18 05:21 Monocytes % (Manual) 4.0 % (0.0-7.3) 08/16/18 05:21 Eosinophils % (Manual) 11.0 % (0.0-4.3) H 08/16/18 05:21 Basophils % (Manual) 1.0 % (0.0-1.8) 08/16/18 05:21 Metamyelocytes % 1.0 % 08/16/18 05:21 Myelocytes % 1.0 % 08/16/18 05:21 Promyelocytes % 0 % 08/16/18 05:21 Blast Cells % 0 % 08/16/18 05:21 Nucleated RBC % Not Reportable 08/16/18 05:21 Seg Neutrophils # Man 2.2 K/mm3 (1.8-7.7) 08/16/18 05:21 Band Neutrophils # 0.1 K/mm3 08/16/18 05:21 Lymphocytes # (Manual) 0.7 K/mm3 (1.2-5.4) L 08/16/18 05:21 Abs React Lymphs (Man) 0.0 K/mm3 08/16/18 05:21 Monocytes # (Manual) 0.1 K/mm3 (0.0-0.8) 08/16/18 05:21 Eosinophils # (Manual) 0.4 K/mm3 (0.0-0.4) 08/16/18 05:21 Basophils # (Manual) 0.0 K/mm3 (0.0-0.1) 08/16/18 05:21 Metamyelocytes # 0.0 K/mm3 08/16/18 05:21 Myelocytes # 0.0 K/mm3 08/16/18 05:21 Promyelocytes # 0.0 K/mm3 08/16/18 05:21 Blast Cells # 0.0 K/mm3 08/16/18 05:21 WBC Morphology Not Reportable 08/16/18 05:21 Hypersegmented Neuts Not Reportable 08/16/18 05:21 Hyposegmented Neuts Not Reportable 08/16/18 05:21 Hypogranular Neuts Not Reportable 08/16/18 05:21 Smudge Cells Not Reportable 08/16/18 05:21 Toxic Granulation Not Reportable 08/16/18 05:21 Toxic Vacuolation Not Reportable 08/16/18 05:21 Dohle Bodies Not Reportable 08/16/18 05:21 Pelger-Huet Anomaly Not Reportable 08/16/18 05:21 Waldemar Rods Not Reportable 08/16/18 05:21 Platelet Estimate Appears decreased 08/16/18 05:21 Clumped Platelets Not Reportable 08/16/18 05:21 Plt Clumps, EDTA Not Reportable 08/16/18 05:21 Large Platelets Few 08/16/18 05:21 Giant Platelets Not Reportable 08/16/18 05:21 Platelet Satelliting Not Reportable 08/16/18 05:21 Plt Morphology Comment Not Reportable 08/16/18 05:21 RBC Morphology Normal 08/16/18 05:21 Dimorphic RBCs Not Reportable 08/16/18 05:21 Polychromasia Not Reportable 08/16/18 05:21 Hypochromasia Not Reportable 08/16/18 05:21 Poikilocytosis Not Reportable 08/16/18 05:21 Anisocytosis Not Reportable 08/16/18 05:21 Microcytosis Not Reportable 08/16/18 05:21 Macrocytosis Not Reportable 08/16/18 05:21 Spherocytes Not Reportable 08/16/18 05:21 Pappenheimer Bodies Not Reportable 08/16/18 05:21 Sickle Cells Not Reportable 08/16/18 05:21 Target Cells Not Reportable 08/16/18 05:21 Tear Drop Cells Not Reportable 08/16/18 05:21 Ovalocytes Not Reportable 08/16/18 05:21 Helmet Cells Not Reportable 08/16/18 05:21 Abdi[place] Bodies Not Reportable 08/16/18 05:21 [place] Rings Not Reportable 08/16/18 05:21 [place] Cells Not Reportable 08/16/18 05:21 Bite Cells Not Reportable 08/16/18 05:21 Crenated Cell Not Reportable 08/16/18 05:21 Elliptocytes Not Reportable 08/16/18 05:21 Acanthocytes (Spur) Not Reportable 08/16/18 05:21 Rouleaux Not Reportable 08/16/18 05:21 Hemoglobin C Crystals Not Reportable 08/16/18 05:21 Schistocytes Not Reportable 08/16/18 05:21 Malaria parasites Not Reportable 08/16/18 05:21 Migeul Ángel Bodies Not Reportable 08/16/18 05:21 Hem Pathologist Commnt No 08/16/18 05:21 PT 14.5 Sec. (12.2-14.9) 08/15/18 12:59 INR 1.06 (0.87-1.13) 08/15/18 12:59 APTT 28.0 Sec. (24.2-36.6) 08/15/18 12:59 Thrombin Time 16.9 Sec. (15.1-19.6) 08/15/18 12:59 Sodium 141 mmol/L (137-145) 08/16/18 05:21 Potassium 4.2 mmol/L (3.6-5.0) 08/16/18 05:21 Chloride 103.9 mmol/L (98-107) 08/16/18 05:21 Carbon Dioxide 26 mmol/L (22-30) 08/16/18 05:21 Anion Gap 15 mmol/L 08/16/18 05:21 BUN 14 mg/dL (7-17) 08/16/18 05:21 Creatinine 0.7 mg/dL (0.7-1.2) 08/16/18 05:21 Estimated GFR > 60 ml/min 08/16/18 05:21 BUN/Creatinine Ratio 20 % 08/16/18 05:21 Glucose 105 mg/dL (65-100) H 08/16/18 05:21 POC Glucose 111 (70-105) H 08/16/18 16:57 Hemoglobin A1c 5.6 % (4-6) 08/15/18 00:10 Calcium 9.7 mg/dL (8.4-10.2) 08/16/18 05:21 Magnesium 1.70 mg/dL (1.7-2.3) 08/15/18 13:10 Total Bilirubin 0.30 mg/dL (0.1-1.2) 08/16/18 05:21 AST 24 units/L (5-40) 08/16/18 05:21 ALT 16 units/L (7-56) 08/16/18 05:21 Alkaline Phosphatase 44 units/L (35-129) 08/16/18 05:21 Total Creatine Kinase 109 units/L (30-135) 08/15/18 13:10 Troponin T 0.049 ng/mL (0.00-0.029) H 08/15/18 12:55 Total Protein 6.4 g/dL (6.3-8.2) 08/16/18 05:21 Albumin 3.3 g/dL (3.9-5) L 08/16/18 05:21 Albumin/Globulin Ratio 1.1 % 08/16/18 05:21 Triglycerides 140 mg/dL (2-149) 08/15/18 12:55 Cholesterol 189 mg/dL (50-199) 08/15/18 12:55 LDL Cholesterol Direct 115 mg/dL (50-130) 08/15/18 12:55 HDL Cholesterol 45 mg/dL (40-59) 08/15/18 12:55 Cholesterol/HDL Ratio 4.20 % 08/15/18 12:55 TSH 1.230 mlU/mL (0.270-4.200) 08/15/18 13:10 Urine Color Straw (Yellow) 08/15/18 14:05 Urine Turbidity Clear (Clear) 08/15/18 14:05 Urine pH 8.0 (5.0-7.0) H 08/15/18 14:05 Ur Specific [place] 1.005 (1.003-1.030) 08/15/18 14:05 Urine Protein <15 mg/dl mg/dL (Negative) 08/15/18 14:05 Urine Glucose (UA) Neg mg/dL (Negative) 08/15/18 14:05 Urine Ketones Neg mg/dL (Negative) 08/15/18 14:05 Urine Blood Neg (Negative) 08/15/18 14:05 Urine Nitrite Neg (Negative) 08/15/18 14:05 Urine Bilirubin Neg (Negative) 08/15/18 14:05 Urine Urobilinogen < 2.0 mg/dL (<2.0) 08/15/18 14:05 Ur Leukocyte Esterase Mod (Negative) 08/15/18 14:05 Urine WBC (Auto) 9.0 /HPF (0.0-6.0) H 08/15/18 14:05 Urine RBC (Auto) 1.0 /HPF (0.0-6.0) 08/15/18 14:05 U Epithel Cells (Auto) 3.0 /HPF (0-13.0) 08/15/18 14:05 Urine Bacteria (Auto) 1+ /HPF (Negative) 08/15/18 14:05
[2018-08-17] MEDS ORDERED: KEPPRA 1,000 MG in NACL 0.9% 100 ML IV ONE (10:15)
--- NOTE | 2018-08-17 10:35 | Progress Note ---
Subjective Date of service: 08/17/18 Interval history: WE HAVE EXTENSIVE cta / cta OF HEAD AND NECK AND THESE ARE NEGATIVE THE U/S OF THE CAROTID IS NEGATIVE WELL THE CT OF BRAIN FROM THIS AM IS NEGATIVE GLUCOSES ARE SLIGHTLY ELEVATED-- TO ME VERTIGO IS FROM TIA AWAIT MRI Objective - Vital Sign Vital Signs - 12hr 08/16/18 08/16/18 08/17/18 22:43 23:20 04:55 Temperature 98.3 F 98.1 F Pulse Rate 80 74 Respiratory 20 20 Rate Blood Pressure 147/56 142/60 O2 Sat by Pulse 99 98 100 Oximetry 08/17/18 08:22 Temperature 98.7 F Pulse Rate 87 Respiratory 18 Rate Blood Pressure 133/60 O2 Sat by Pulse 98 Oximetry - Laboratory Findings CBC and BMP: 08/16/18 05:21 08/16/18 05:21 Abnormal Lab Findings: Abnormal Labs 08/15/18 08/15/18 08/15/18 12:55 12:55 14:05 WBC 3.9 L RDW 15.4 H Plt Count 103 L Monocytes % (Manual) 15.0 H Eosinophils % (Manual) 9.0 H Lymphocytes # (Manual) 0.7 L Glucose 109 H POC Glucose Calcium 10.3 H Troponin T 0.049 H Albumin Urine pH 8.0 H Urine WBC (Auto) 9.0 H 08/16/18 08/16/18 08/16/18 05:21 05:21 12:06 WBC 3.6 L RDW 15.4 H Plt Count 98 L Monocytes % (Manual) Eosinophils % (Manual) 11.0 H Lymphocytes # (Manual) 0.7 L Glucose 105 H POC Glucose 140 H Calcium Troponin T Albumin 3.3 L Urine pH Urine WBC (Auto) 08/16/18 16:57 WBC RDW Plt Count Monocytes % (Manual) Eosinophils % (Manual) Lymphocytes # (Manual) Glucose POC Glucose 111 H Calcium Troponin T Albumin Urine pH Urine WBC (Auto)
[2018-08-17] MEDS: HCTZ PO SCH (11:34)
[2018-08-17] MEDS: DIOVAN PO SCH (11:35)
[2018-08-17] MEDS: PEPCID PO SCH ×2 (11:35→21:53)
[2018-08-17] MEDS: K-DUR PO SCH (11:35)
[2018-08-17] MEDS: BABY ASPIRIN PO SCH (11:35)
[2018-08-17] MEDS: MACROBID PO SCH ×2 (11:35→21:53)
[2018-08-17] MEDS: ROCEPHIN/NS 1 GM/50 ML 1 GM/50 ML BAG IV SCH (11:36)
[2018-08-17] MEDS: SODIUM CHLORIDE FLUSH SYRINGE 10 ML IV SCH ×2 (20:39→21:54)
--- NOTE | 2018-08-17 21:46 | Consultation ---
HISTORY OF PRESENT ILLNESS: This is a 67-year-old black female who presents to [facility] with a prior medical history of having lymphoma, also prior medical history of having psoriasis, although she is not taking any of the injectables or disease-modifying drugs prior to the onset of her diagnosis of the lymphoma. When she presented to the hospital, she has a very unusual history of having several episodes where she had developed vertigo, nearly passing out and having problems with her low oxygen. One of these episodes occurred while she was on a plane, coming back from [place], which required that she have oxygen therapy and was acutely sick. During subsequent episodes, she has had vertigo, trouble with her walking and evidence of other problems of a similar nature. Since admission, she has had one other episode where she became vertiginous and had no other problems following that. RADIOLOGICAL DATA: I have reviewed her carotid artery ultrasound and is negative. I have reviewed her most recent CT scan of the head, which is obtained following an episode where she became acutely sick, having vertigo, mild elevation in her blood pressure. There are minimal white matter changes present bilaterally, deep white matter of the hemispheres, but no other acute lesions are visible. I do not see any areas of edema or swelling. PHYSICAL EXAMINATION: Her neurological examination is normal. She has no nystagmus. Speech is clear. She swallows well. Her balance seems excellent. RECOMMENDATION: At this point is to get an MRI/MRA and review results of echocardiogram. I did note that on admission that the CTA and CT of the neck and head showed no stenosis, no intracranial lesions, everything appeared to be widely patent, which is a good sign. Her blood sugar certainly does not seem to be grossly out of line causing this problem and further assessment of cause of vertigo be looked at on the MRI. JOB# [id number] BRADLY/NTS
[2018-08-17] MEDS: ATARAX PO PRN (21:54)
--- NOTE | 2018-08-18 08:27 | Progress Note ---
Subjective Date of service: 08/18/18 Interval history: INTERESTING THAT THE EOSINOPHIOL COUNT REMAINS UP THIS MAY EXPLAIN THE ITCHING DISORDER THE mri RESULTS ARE CRITICAL TO THE tia SPOKE TO PATIENT AT LENGTH ABOUT STUDY RESULTS Objective - Vital Sign Vital Signs - 12hr 08/17/18 08/18/18 08/18/18 20:45 00:05 04:08 Temperature 98.5 F 98.7 F Pulse Rate 81 78 Respiratory 18 20 20 Rate Blood Pressure 128/54 104/34 O2 Sat by Pulse 99 97 96 Oximetry 08/18/18 08/18/18 06:32 08:14 Temperature 98.1 F Pulse Rate 79 87 Respiratory 20 18 Rate Blood Pressure 127/49 122/50 O2 Sat by Pulse 96 100 Oximetry - Laboratory Findings CBC and BMP: 08/16/18 05:21 08/16/18 05:21 Abnormal Lab Findings: Abnormal Labs 08/15/18 08/15/18 08/15/18 12:55 12:55 14:05 WBC 3.9 L RDW 15.4 H Plt Count 103 L Monocytes % (Manual) 15.0 H Eosinophils % (Manual) 9.0 H Lymphocytes # (Manual) 0.7 L Glucose 109 H POC Glucose Calcium 10.3 H Troponin T 0.049 H Albumin Urine pH 8.0 H Urine WBC (Auto) 9.0 H 08/16/18 08/16/18 08/16/18 05:21 05:21 12:06 WBC 3.6 L RDW 15.4 H Plt Count 98 L Monocytes % (Manual) Eosinophils % (Manual) 11.0 H Lymphocytes # (Manual) 0.7 L Glucose 105 H POC Glucose 140 H Calcium Troponin T Albumin 3.3 L Urine pH Urine WBC (Auto) 08/16/18 08/17/18 16:57 08:53 WBC RDW Plt Count Monocytes % (Manual) Eosinophils % (Manual) Lymphocytes # (Manual) Glucose POC Glucose 111 H 114 H Calcium Troponin T Albumin Urine pH Urine WBC (Auto)
[2018-08-18] MEDS ORDERED: ATIVAN IV ONE (09:30)
[2018-08-18] MEDS ORDERED: VALIUM PO ONE (12:59)
--- NOTE | 2018-08-18 13:51 | Progress Note ---
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 She recently traveled to [facility]. At some point in time this morning, developed speech disturbance. Upon arrival to the emergency room, the patient is noted to have an intermittent speech disturbance, but no focal extremity weakness. Accu-Chek was within normal limits. Patient denied physical pain. per chart, Since patient reportedly woke up with lightheadedness, dizziness, possible unsteady gait, last known well time is last night, the patient is therefore not a TPA candidate. Noncontrast CT scan of the brain was negative for acute disease. -Dizziness and Ataxia gait suspect Acute CVA vs TIA: mri pending, consulted Neurology, Dr. Barone, treat with asa and statin -Acute encephalopathy, poa,?seizure; start keppra, order EEG -History of NHL; continue to monitor -UTI; follow up urine culture, started iv rocephin Patient was doing well this morning until she went to the restroom and she had an episode of dizziness, ataxia, alteration in consciousness like a post-ictal state. CODE Stroke called, and repeat CT head unremarkable for acute stroke. Will order EEG and start on Keppra, still waiting on MRI brain because it is not done during the Weekend. 08/18/18: Patient had another spell of AMS, dizziness. Valium given for MRI/MRA which is pending. History Interval history: Patient was seen and examined. Follow-up on current diagnosis of dizziness. Overnight uneventful. Patient denies any chest pain, shortness breath, nausea/vomiting or severe headaches. Imaging, nursing note, chart, labs and old chart reviewed. Discussed with patient. Hospitalist Physical - Physical exam Narrative exam: Gen: WDWN, NAD, Awake, Alert, Orientated HEENT: NCAT, EOMI, PERRL, OP Clear Neck: supple, no adenopathy, no thyromegaly, no JVD CVS/Heart: RRR, normal S1S2, pulses present bilaterally Chest/Lungs: CTA B, Symmetrical chest expansion, good air entry bilaterally GI/Abdomen: soft, NTND, good bowel sounds, no guarding or rebound /Bladder: no suprapubic tenderness, no CVA or paraspinal tenderness Extermity/Skin: no c/c/e, no obvious rash MSK: FROM x 4 Neuro: CN 2-12 grossly intact, no new focal deficits Psych: calm - Constitutional Vitals: Temp Pulse Resp BP Pulse Ox 98.1 F 94 H 18 163/68 94 08/18/18 08:14 08/18/18 13:15 08/18/18 12:45 08/18/18 12:21 08/18/18 13:15 Results - Labs CBC & Chem 7: 08/16/18 05:21 08/16/18 05:21 Labs: Laboratory Last Values WBC 3.6 K/mm3 (4.5-11.0) L 08/16/18 05:21 RBC 4.04 M/mm3 (3.65-5.03) 08/16/18 05:21 Hgb 11.4 gm/dl (10.1-14.3) 08/16/18 05:21 Hct 33.8 % (30.3-42.9) 08/16/18 05:21 MCV 84 fl (79-97) 08/16/18 05:21 MCH 28 pg (28-32) 08/16/18 05:21 MCHC 34 % (30-34) 08/16/18 05:21 RDW 15.4 % (13.2-15.2) H 08/16/18 05:21 Plt Count 98 K/mm3 (140-440) L 08/16/18 05:21 Sampson % (Auto) Anesthesiology Fellow 08/16/18 05:21 Add Manual Diff Complete 08/16/18 05:21 Total Counted 100 08/16/18 05:21 Seg Neuts % (Manual) 60.0 % (40.0-70.0) 08/16/18 05:21 Band Neutrophils % 3.0 % 08/16/18 05:21 Lymphocytes % (Manual) 19.0 % (13.4-35.0) 08/16/18 05:21 Reactive Lymphs % (Man) 0 % 08/16/18 05:21 Monocytes % (Manual) 4.0 % (0.0-7.3) 08/16/18 05:21 Eosinophils % (Manual) 11.0 % (0.0-4.3) H 08/16/18 05:21 Basophils % (Manual) 1.0 % (0.0-1.8) 08/16/18 05:21 Metamyelocytes % 1.0 % 08/16/18 05:21 Myelocytes % 1.0 % 08/16/18 05:21 Promyelocytes % 0 % 08/16/18 05:21 Blast Cells % 0 % 08/16/18 05:21 Nucleated RBC % Not Reportable 08/16/18 05:21 Seg Neutrophils # Man 2.2 K/mm3 (1.8-7.7) 08/16/18 05:21 Band Neutrophils # 0.1 K/mm3 08/16/18 05:21 Lymphocytes # (Manual) 0.7 K/mm3 (1.2-5.4) L 08/16/18 05:21 Abs React Lymphs (Man) 0.0 K/mm3 08/16/18 05:21 Monocytes # (Manual) 0.1 K/mm3 (0.0-0.8) 08/16/18 05:21 Eosinophils # (Manual) 0.4 K/mm3 (0.0-0.4) 08/16/18 05:21 Basophils # (Manual) 0.0 K/mm3 (0.0-0.1) 08/16/18 05:21 Metamyelocytes # 0.0 K/mm3 08/16/18 05:21 Myelocytes # 0.0 K/mm3 08/16/18 05:21 Promyelocytes # 0.0 K/mm3 08/16/18 05:21 Blast Cells # 0.0 K/mm3 08/16/18 05:21 WBC Morphology Not Reportable 08/16/18 05:21 Hypersegmented Neuts Not Reportable 08/16/18 05:21 Hyposegmented Neuts Not Reportable 08/16/18 05:21 Hypogranular Neuts Not Reportable 08/16/18 05:21 Smudge Cells Not Reportable 08/16/18 05:21 Toxic Granulation Not Reportable 08/16/18 05:21 Toxic Vacuolation Not Reportable 08/16/18 05:21 Dohle Bodies Not Reportable 08/16/18 05:21 Pelger-Huet Anomaly Not Reportable 08/16/18 05:21 Waldemar Rods Not Reportable 08/16/18 05:21 Platelet Estimate Appears decreased 08/16/18 05:21 Clumped Platelets Not Reportable 08/16/18 05:21 Plt Clumps, EDTA Not Reportable 08/16/18 05:21 Large Platelets Few 08/16/18 05:21 Giant Platelets Not Reportable 08/16/18 05:21 Platelet Satelliting Not Reportable 08/16/18 05:21 Plt Morphology Comment Not Reportable 08/16/18 05:21 RBC Morphology Normal 08/16/18 05:21 Dimorphic RBCs Not Reportable 08/16/18 05:21 Polychromasia Not Reportable 08/16/18 05:21 Hypochromasia Not Reportable 08/16/18 05:21 Poikilocytosis Not Reportable 08/16/18 05:21 Anisocytosis Not Reportable 08/16/18 05:21 Microcytosis Not Reportable 08/16/18 05:21 Macrocytosis Not Reportable 08/16/18 05:21 Spherocytes Not Reportable 08/16/18 05:21 Pappenheimer Bodies Not Reportable 08/16/18 05:21 Sickle Cells Not Reportable 08/16/18 05:21 Target Cells Not Reportable 08/16/18 05:21 Tear Drop Cells Not Reportable 08/16/18 05:21 Ovalocytes Not Reportable 08/16/18 05:21 Helmet Cells Not Reportable 08/16/18 05:21 Abdi-Chassell Bodies Not Reportable 08/16/18 05:21 Afton Rings Not Reportable 08/16/18 05:21 Tila Cells Not Reportable 08/16/18 05:21 Bite Cells Not Reportable 08/16/18 05:21 Crenated Cell Not Reportable 08/16/18 05:21 Elliptocytes Not Reportable 08/16/18 05:21 Acanthocytes (Spur) Not Reportable 08/16/18 05:21 Rouleaux Not Reportable 08/16/18 05:21 Hemoglobin C Crystals Not Reportable 08/16/18 05:21 Schistocytes Not Reportable 08/16/18 05:21 Malaria parasites Not Reportable 08/16/18 05:21 Miguel Ángel Bodies Not Reportable 08/16/18 05:21 Hem Pathologist Commnt No 08/16/18 05:21 PT 14.5 Sec. (12.2-14.9) 08/15/18 12:59 INR 1.06 (0.87-1.13) 08/15/18 12:59 APTT 28.0 Sec. (24.2-36.6) 08/15/18 12:59 Thrombin Time 16.9 Sec. (15.1-19.6) 08/15/18 12:59 Sodium 141 mmol/L (137-145) 08/16/18 05:21 Potassium 4.2 mmol/L (3.6-5.0) 08/16/18 05:21 Chloride 103.9 mmol/L (98-107) 08/16/18 05:21 Carbon Dioxide 26 mmol/L (22-30) 08/16/18 05:21 Anion Gap 15 mmol/L 08/16/18 05:21 BUN 14 mg/dL (7-17) 08/16/18 05:21 Creatinine 0.7 mg/dL (0.7-1.2) 08/16/18 05:21 Estimated GFR > 60 ml/min 08/16/18 05:21 BUN/Creatinine Ratio 20 % 08/16/18 05:21 Glucose 105 mg/dL (65-100) H 08/16/18 05:21 POC Glucose 104 (70-105) 08/18/18 11:55 Hemoglobin A1c 5.6 % (4-6) 08/15/18 00:10 Calcium 9.7 mg/dL (8.4-10.2) 08/16/18 05:21 Magnesium 1.70 mg/dL (1.7-2.3) 08/15/18 13:10 Total Bilirubin 0.30 mg/dL (0.1-1.2) 08/16/18 05:21 AST 24 units/L (5-40) 08/16/18 05:21 ALT 16 units/L (7-56) 08/16/18 05:21 Alkaline Phosphatase 44 units/L (35-129) 08/16/18 05:21 Total Creatine Kinase 109 units/L (30-135) 08/15/18 13:10 Troponin T 0.049 ng/mL (0.00-0.029) H 08/15/18 12:55 Total Protein 6.4 g/dL (6.3-8.2) 08/16/18 05:21 Albumin 3.3 g/dL (3.9-5) L 08/16/18 05:21 Albumin/Globulin Ratio 1.1 % 08/16/18 05:21 Triglycerides 140 mg/dL (2-149) 08/15/18 12:55 Cholesterol 189 mg/dL (50-199) 08/15/18 12:55 LDL Cholesterol Direct 115 mg/dL (50-130) 08/15/18 12:55 HDL Cholesterol 45 mg/dL (40-59) 08/15/18 12:55 Cholesterol/HDL Ratio 4.20 % 08/15/18 12:55 TSH 1.230 mlU/mL (0.270-4.200) 08/15/18 13:10 Urine Color Straw (Yellow) 08/15/18 14:05 Urine Turbidity Clear (Clear) 08/15/18 14:05 Urine pH 8.0 (5.0-7.0) H 08/15/18 14:05 Ur Specific Rodney 1.005 (1.003-1.030) 08/15/18 14:05 Urine Protein <15 mg/dl mg/dL (Negative) 08/15/18 14:05 Urine Glucose (UA) Neg mg/dL (Negative) 08/15/18 14:05 Urine Ketones Neg mg/dL (Negative) 08/15/18 14:05 Urine Blood Neg (Negative) 08/15/18 14:05 Urine Nitrite Neg (Negative) 08/15/18 14:05 Urine Bilirubin Neg (Negative) 08/15/18 14:05 Urine Urobilinogen < 2.0 mg/dL (<2.0) 08/15/18 14:05 Ur Leukocyte Esterase Mod (Negative) 08/15/18 14:05 Urine WBC (Auto) 9.0 /HPF (0.0-6.0) H 08/15/18 14:05 Urine RBC (Auto) 1.0 /HPF (0.0-6.0) 08/15/18 14:05 U Epithel Cells (Auto) 3.0 /HPF (0-13.0) 08/15/18 14:05 Urine Bacteria (Auto) 1+ /HPF (Negative) 08/15/18 14:05
--- NOTE | 2018-08-18 14:05 | Magnetic Resonance Report ---
MRI OF THE BRAIN WITHOUT CONTRAST: HISTORY: Seizure PROCEDURE: Multiplanar, multisequence MR imaging of the brain without IV contrast was performed. FINDINGS: Compared to the CT head dated 08/17/18. Mild nonspecific chronic white matter changes are identified which probably represent chronic microvascular ischemic disease. The remaining brain parenchyma is within normal limits. No evidence for acute ischemia, hemorrhage or mass. No chronic infarct or extra-axial fluid collection. The midline structures are central. The basal cisterns are patent. Normal ventricular size. The orbital cavities and sella turcica demonstrate no abnormality. Minimal mucosal thickening is noted in the inferior maxillary sinuses. The remaining nasal sinuses and mastoid air cells are well-aerated. IMPRESSION: Mild nonspecific chronic white matter changes. Otherwise, unremarkable MR brain.
--- NOTE | 2018-08-18 14:06 | Magnetic Resonance Report ---
MRA HEAD WITHOUT CONTRAST HISTORY: Stroke. [id number] imaging with MIP reformations of the [place] is submitted. The arteries appear widely patent and free of hemodynamically significant stenosis, aneurysm or dissection. IMPRESSION: Unremarkable MRA head.
--- NOTE | 2018-08-18 14:07 | Cat Scan Report ---
PROCEDURE: CT ANGIO HEAD and CTA neck TECHNIQUE: Computerized tomographic angiography of the head and neck was performed after the IV inje ction of iodinated nonionic contrast including image processing. The image data was postprocessed us ing 2-dimensional multiplanar reformatted (MPR) and 3-dimensional (MIP and/or volume rendered) techni ques. CT DOSE LENGTH PRODUCT: 2020.47 mGycm HISTORY: cva FINDINGS: Contrast-enhanced CT angiography of the neck and head was performed following the intraveno us administration of iodinated contrast. Sagittal and coronal three-dimensional reformatted images we re generated. Comparison is made to the unenhanced CT examination performed earlier in the day. CTA NECK: The pulmonary apices appear clear. There is a right-sided infusion port. The right common carotid artery is widely patent. There is a short segment estimated 15% stenosis of the origin of the internal carotid artery, sagittal image 132. The external carotid is widely patent. The right vertebral artery is patent throughout its course. On the left, the common carotid artery is widely patent. There is a minimal less than 10% stenosis of the origin of the left internal carotid artery. The external carotid artery is widely patent. The ve rtebral artery is patent throughout its course. The thyroid gland is unremarkable. There is a normal epiglottis. The larynx is within normal limits. CTA HEAD: Both vertebral arteries are patent. The basilar artery is patent. Both posterior cerebral arteries ap pear widely patent. In the anterior circulation, the internal carotid, middle cerebral and anterior cerebral arteries lily ear patent. Both anterior cerebral arteries are primarily perfused from the right side as the left A1 segment is very small, likely on a developmental basis. No acute infarct is seen. Diffusion weighted MRI may be considered if patient has persistent altered mental status. There are bilateral maxillary polyps versus mucus retention cysts. IMPRESSION: CTA neck: No stenosis of greater than 50% is seen in the cervical arterial vasculature CTA HEAD: The intracranial arterial vasculature appears widely patent This document is electronically signed by Aly Pastrana MD., August 15 2018 05:26:09 PM ET
[2018-08-18] MEDS: MACROBID PO SCH ×2 (14:09→21:26)
[2018-08-18] MEDS: K-DUR PO SCH (14:09)
[2018-08-18] MEDS: PEPCID PO SCH ×2 (14:09→21:26)
[2018-08-18] MEDS: BABY ASPIRIN PO SCH (14:10)
[2018-08-18] MEDS: DIOVAN PO SCH (14:10)
[2018-08-18] MEDS: HCTZ PO SCH (14:10)
[2018-08-18] MEDS: ROCEPHIN/NS 1 GM/50 ML 1 GM/50 ML BAG IV SCH (14:11)
[2018-08-18] MEDS: KEPPRA 500 MG in NACL 0.9% 100 ML IV SCH ×2 (15:52→21:27)
[2018-08-18] MEDS: NACL 0.9% 1000 ML 1,000 ML IV SCH (18:52)
[2018-08-18] MEDS: SODIUM CHLORIDE FLUSH SYRINGE 10 ML IV SCH ×2 (19:31→21:48)
[2018-08-18] MEDS: CLARITIN PO PRN (22:13)
[2018-08-19] MEDS: NACL 0.9% 1000 ML 1,000 ML IV SCH (00:36)
[2018-08-19] MEDS: DIOVAN PO SCH (11:57)
[2018-08-19] MEDS: PEPCID PO SCH (11:57)
[2018-08-19] MEDS: BABY ASPIRIN PO SCH (11:57)
[2018-08-19] MEDS: K-DUR PO SCH (11:57)
[2018-08-19] MEDS: KEPPRA 500 MG in NACL 0.9% 100 ML IV SCH (11:57)
[2018-08-19] MEDS: HCTZ PO SCH (11:58)
[2018-08-19] MEDS: MACROBID PO SCH (11:58)
[2018-08-19] MEDS: ROCEPHIN/NS 1 GM/50 ML 1 GM/50 ML BAG IV SCH (11:58)
[2018-08-19] MEDS: SODIUM CHLORIDE FLUSH SYRINGE 10 ML IV SCH (11:59)
[2018-08-19] MEDS: CLARITIN PO PRN (12:24)
--- NOTE | 2018-08-19 12:52 | Discharge Summary ---
Providers - Providers Date of Admission: 08/15/18 18:28 Date of discharge: 08/19/18 Attending physician: HYACINTH NICK 08/15/18 13:05 Consult to Physician [CONS] Stat Comment: NOTIFIED ER [id number] Consulting Provider: MELISA DE LOS SANTOS Physician Instructions: Reason For Exam: cva 08/15/18 23:55 Occupational Therapy Evaluate and Treat [CONS] Routine Comment: Reason For Exam: Neuro deficits Physical Therapy Evaluation and Treat [CONS] Routine Comment: Reason For Exam: Neuro deficits 08/15/18 23:57 Consult to Physician [CONS] Routine Comment: Consulting Provider: LILLIAM BARONE Physician Instructions: Reason For Exam: Tia vs CVA 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 She recently traveled to [facility]. At some point in time this morning, developed speech disturbance. Upon arrival to the emergency room, the patient is noted to have an intermittent speech disturbance, but no focal extremity weakness. Accu-Chek was within normal limits. Patient denied physical pain. per chart, Since patient reportedly woke up with lightheadedness, dizziness, possible unsteady gait, last known well time is last night, the patient is therefore not a TPA candidate. Noncontrast CT scan of the brain was negative for acute disease. -Dizziness and Ataxia, suspect TIA -Acute encephalopathy, EEG unremarkable, d/w Dr. Barone -History of NHL; continue to monitor -UTI; follow up urine culture, started iv rocephin -H/o NHL: recommend follow up with her heme/onc -H/o bilateral elbow psosaris and eosinophila: recommend outpatient Dermatology and her heme/onc Disposition: - TO HOME OR SELFCARE Time spent for discharge: 35 minutes Core Measure Documentation - Palliative Care Palliative Care/ Comfort Measures: Not Applicable - Core Measures Any of the following diagnoses?: none - VTE Discharge Requirements Deep Vein Thrombosis/Pulmonary Embolism Present on Admission: No Has pt received <5 days of overlap therapy or INR<2.0: No Anticoagulant overlap therapy prescribed at discharge: No Contraindication No Overlap Therapy order at DC: Not Indicated Exam - Physical Exam Narrative exam: Gen: WDWN, NAD, Awake, Alert, Orientated HEENT: NCAT, EOMI, PERRL, OP Clear Neck: supple, no adenopathy, no thyromegaly, no JVD CVS/Heart: RRR, normal S1S2, pulses present bilaterally Chest/Lungs: CTA B, Symmetrical chest expansion, good air entry bilaterally GI/Abdomen: soft, NTND, good bowel sounds, no guarding or rebound /Bladder: no suprapubic tenderness, no CVA or paraspinal tenderness Extermity/Skin: no c/c/e, no obvious rash MSK: FROM x 4 Neuro: CN 2-12 grossly intact, no new focal deficits Psych: calm - Constitutional Vitals: Temp Pulse Resp BP Pulse Ox 98.6 F 77 18 128/53 100 08/19/18 08:40 08/19/18 08:40 08/19/18 09:00 08/19/18 08:40 08/19/18 08:40 Plan Activity: other (no strenous activity until cleared by pcp) Diet: low salt Follow up with: LILLIAM BARONE MD [Staff Physician] - 7 Days SEBAS RIOJAS MD [Staff Physician] - 7 Days SARAH MAHAJAN MD [Staff Physician] - 7 Days Prescriptions: AtorvaSTATin [Lipitor] 40 mg PO QHS #30 tablet hydrOXYzine HCl [Hydroxyzine HCl] 10 mg PO QHS PRN #30 tablet PRN Reason: Itching Aspirin [Aspirin BABY CHEW TAB] 81 mg PO QDAY #30 tab.chew Diazepam [Valium] 10 mg PO QDAY PRN #4 tablet PRN Reason: Anxiety Famotidine [Pepcid] 20 mg PO BID #60 tablet Fexofenadine HCl [Candida Allergy] 180 mg PO QAM PRN #30 tablet PRN Reason: Itching Potassium Chloride [Klor-Con M20] 20 meq PO QDAY #30 tab.er.prt
[2018-08-19 16:29] VITALS: BP 115/48
--- NOTE | 2018-08-19 16:58 | Progress Note ---
Subjective Date of service: 08/19/18 Interval history: EEG non epileptic will f/u in he office Objective - Vital Sign Vital Signs - 12hr 08/19/18 08/19/18 08/19/18 08:40 09:00 12:22 Temperature 98.6 F 98.4 F Pulse Rate 77 85 Respiratory 20 18 20 Rate Blood Pressure 128/53 128/64 O2 Sat by Pulse 100 99 Oximetry 08/19/18 15:16 Temperature 98.2 F Pulse Rate 87 Respiratory 20 Rate Blood Pressure 115/48 O2 Sat by Pulse 100 Oximetry - Laboratory Findings CBC and BMP: 08/16/18 05:21 08/16/18 05:21 Abnormal Lab Findings: Abnormal Labs 08/15/18 08/15/18 08/15/18 12:55 12:55 14:05 WBC 3.9 L RDW 15.4 H Plt Count 103 L Monocytes % (Manual) 15.0 H Eosinophils % (Manual) 9.0 H Lymphocytes # (Manual) 0.7 L Glucose 109 H POC Glucose Calcium 10.3 H Troponin T 0.049 H Albumin Urine pH 8.0 H Urine WBC (Auto) 9.0 H 08/16/18 08/16/18 08/16/18 05:21 05:21 12:06 WBC 3.6 L RDW 15.4 H Plt Count 98 L Monocytes % (Manual) Eosinophils % (Manual) 11.0 H Lymphocytes # (Manual) 0.7 L Glucose 105 H POC Glucose 140 H Calcium Troponin T Albumin 3.3 L Urine pH Urine WBC (Auto) 08/16/18 08/17/18 16:57 08:53 WBC RDW Plt Count Monocytes % (Manual) Eosinophils % (Manual) Lymphocytes # (Manual) Glucose POC Glucose 111 H 114 H Calcium Troponin T Albumin Urine pH Urine WBC (Auto)
== END 2018-08-19 17:13 | disposition home or self-care (01) | DRG 872 ==
LOC: ED 12:34 → 4A 18:28
PROVIDERS: ADMIT Internal Medicine; ATTEND Internal Medicine
DX: A41.9 Sepsis, unspecified organism (principal); G45.9 Transient cerebral ischemic attack, unspecified; G93.40 Encephalopathy, unspecified; N39.0 Urinary tract infection, site not specified; C85.90 Non-Hodgkin lymphoma, unspecified, unspecified site; R55 Syncope and collapse; L40.9 Psoriasis, unspecified; R00.0 Tachycardia, unspecified; F41.9 Anxiety disorder, unspecified; G89.29 Other chronic pain; E66.01 Morbid (severe) obesity due to excess calories; I10 Essential (primary) hypertension; Z82.49 Family history of ischemic heart disease and other diseases of the circulatory system; Z79.899 Other long term (current) drug therapy; Z71.3 Dietary counseling and surveillance; Z68.32 Body mass index [BMI] 32.0-32.9, adult
CPT/HCPCS: 36415; 70450; 70496; 70498; 70544; 70551; 71045; 80048; 80053; 80061; 81001; 82550; 82962; 83036; 83735; 84443; 84484; 85007; 85025; 85610; 85670; 85730; 87086; 93005; 93010; 93306; 93880; 95819; G0378; A9270-GY; J0696; J1953; J7030; J7040; Q9967